=== PATIENT | female | born 1970 | race Caucasian/White ===

== ENCOUNTER 2018-03-24 17:18 | Emergency (ER) | payer SELFPAY, MEDICAID | END 2018-03-24 21:17 | disposition left against medical advice (07) | LOC: FTE 17:18 | DX: Z53.21 Procedure and treatment not carried out due to patient leaving prior to being seen by health care provider (principal) ==

== ENCOUNTER 2018-05-19 12:37 | Emergency (ER) | payer MEDICAID | END 2018-05-19 14:45 | disposition home or self-care (01) | LOC: FTE 12:37 | DX: B00.9 Herpesviral infection, unspecified (principal); I10 Essential (primary) hypertension; E11.9 Type 2 diabetes mellitus without complications | CPT/HCPCS: 99283; Z7502 ==

== ENCOUNTER 2018-11-09 05:35 | Inpatient (IN) | payer MEDICAID ==
[2018-11-09 06:24] LABS: ADD MAN DIFF? NO
[2018-11-09 06:27] LABS: BASOPHILS % 0.2 % (0.0-2.0); EOSINOPHILS # 0.1 10^3/ul (0.0-0.5); HEMATOCRIT 30.1 % (37.0-47.0); HEMOGLOBIN 9.1 g/dl (12.0-16.0); LYMPHOCYTES # 1.2 10^3/ul (0.8-2.9); LYMPHOCYTES % 21.8 % (15.0-51.0); MEAN CORPUSCULAR HEMOGLOBIN 21.6 pg (29.0-33.0); MEAN CORPUSCULAR HGB CONC 30.2 g/dl (32.0-37.0); MEAN CORPUSCULAR VOLUME 71.3 fl (82.0-101.0); MONOCYTE # 0.6 10^3/ul (0.3-0.9); MONOCYTES % 10.8 % (0.0-11.0); NEUTROPHIL # 3.6 10^3/ul (1.6-7.5); PLATELET COUNT 432 10^3/UL (140-415); RED BLOOD COUNT 4.22 10^6/ul (4.20-5.40); RED CELL DISTRIBUTION WIDTH 15.8 % (11.5-14.5)
[2018-11-09 06:27] LABS: WHITE BLOOD COUNT 5.6 10^3/ul (4.8-10.8)
[2018-11-09] MEDS: FAMOTIDINE 20 MG TAB PO (06:28)
[2018-11-09] MEDS: LIDOCAINE/MYLANTA 40 ML BTL PO (06:28)
[2018-11-09 06:56] LABS: ALANINE AMINOTRANSFERASE 25 IU/L (13-69); ALBUMIN/GLOBULIN RATIO 1.08; ALKALINE PHOSPHATASE 84 IU/L (42-121); ANION GAP 10 (5-13); ASPARTATE AMINO TRANSFERASE 27 IU/L (15-46); BILIRUBIN,INDIRECT 0.2 mg/dl (0-1.1); BILIRUBIN,TOTAL 0.2 mg/dl (0.2-1.3); BLOOD UREA NITROGEN 13 mg/dl (7-20); CALCIUM 8.8 mg/dl (8.4-10.2); CARBON DIOXIDE 25 mmol/L (21-31); CHLORIDE 104 mmol/L (97-110); CREATININE 0.59 mg/dl (0.44-1.00); Estimated GFR > 60 mL/min (>60); GLUCOSE 112 mg/dl (70-220); LIPASE 94 U/L (23-300); POTASSIUM 3.6 mmol/L (3.5-5.1); SODIUM 139 mmol/L (135-144); TOTAL PROTEIN 7.7 g/dl (6.1-8.1)
[2018-11-09 07:31] LABS: UR BILIRUBIN (Dip) NEGATIVE (NEGATIVE); UR BLOOD (Dip) 1+ mg/dL (NEGATIVE); UR CLARITY SLIGHTLY CLOUDY (CLEAR); UR COLOR YELLOW (YELLOW); UR GLUCOSE (Dip) NEGATIVE (NEGATIVE); UR KETONES (Dip) NEGATIVE (NEGATIVE); UR LEUKOCYTE ESTERASE (Dip) TRACE Leu/ul (NEGATIVE); UR NITRITE (Dip) NEGATIVE (NEGATIVE); UR SPECIFIC GRAVITY (Dip) 1.012 (1.003-1.030); UR TOTAL PROTEIN (Dip) NEGATIVE (NEGATIVE); UR UROBILINOGEN (Dip) NEGATIVE (NEGATIVE)
[2018-11-09 07:32] LABS: ADD UMIC YES; UR ASCORBIC ACID NEGATIVE (NEGATIVE); UR BACTERIA FEW /HPF (NONE SEEN); UR RBC 3 /HPF (0-5); UR SQUAMOUS EPITHELIAL CELL FEW /HPF (FEW); UR WBC 6 /HPF (0-5)
[2018-11-09] MEDS: PIPER-TAZO 3.375 GM IV (PMX) 100 ML IVPB ×3 (08:58→20:48)
[2018-11-09] MEDS: morphine 4 MG/ML VIAL IV (09:30)
[2018-11-09] MEDS: ONDANSETRON 4 MG INJ IV (09:31)
[2018-11-09] MEDS ORDERED: morphine 2 MG INJ IV (11:30)
[2018-11-09] MEDS ORDERED: NACL 0.9% 3 ML SYG IV (11:30)
[2018-11-09] MEDS ORDERED: ONDANSETRON 4 MG INJ IV ×2 (11:30→17:00)
[2018-11-09] MEDS: AL HYDROX/MG HYDROX/SIMETH 30 ML CUP PO ×2 (12:10→18:44)
[2018-11-09] MEDS: PANTOPRAZOLE 40 MG INJ IV ×2 (12:10→20:48)
[2018-11-09] MEDS: SOD CHLORIDE 0.9% 1,000 ML IV (12:11)
[2018-11-09 12:42] LABS: IRON 27 ug/dl (35-150)
[2018-11-09 12:51] LABS: % IRON SATURATION 6 % SAT (22-52); TOTAL IRON BINDING CAPACITY 479 ug/dl (241-421)
[2018-11-09 13:41] LABS: FERRITIN 5.8 ng/ml (6.2-137.0)
[2018-11-09] MEDS: LOSARTAN 50 MG TAB PO ×2 (15:09→23:22)
[2018-11-09] MEDS: SUCRALFATE (100 MG/ML) 10ML CUP PO ×2 (15:09→20:47)
[2018-11-09] MEDS: METOCLOPRAMIDE 10 MG TAB PO (15:09)
[2018-11-09] MEDS ORDERED: GLUCOSE GEL 15 GRAM TUBE BUCCAL (16:30)
[2018-11-09] MEDS ORDERED: DEXTROSE 50% 50 ML SYRINGE IV ×2 (16:30)
[2018-11-09] MEDS ORDERED: GLUCOSE GEL 15 GRAM TUBE PO ×2 (16:30)
[2018-11-09] MEDS ORDERED: GLUCAGON 1 MG INJ IM (16:30)
[2018-11-09] MEDS: PROPOFOL 20 ML (16:59)
[2018-11-09] MEDS: LIDOCAINE 2% (SDV) 5 ML INJ (16:59)
[2018-11-09] MEDS ORDERED: HYDROmorphONE 1 MG/5 ML IV SYRINGE IV (17:00)
[2018-11-09] MEDS: INSULIN ASPART [NOVOLOG] 3 ML PEN SC ×2 (17:55→21:00)
[2018-11-09] MEDS: SOD FERRIC GLUC COMPLX 125 MG in SOD CHLORIDE 0.9% 100 ML IVPB (18:47)
[2018-11-10] MEDS: AL HYDROX/MG HYDROX/SIMETH 30 ML CUP PO ×4 (00:51→17:45)
[2018-11-10] MEDS: PIPER-TAZO 3.375 GM IV (PMX) 100 ML IVPB ×4 (00:51→17:44)
[2018-11-10] MEDS: SOD CHLORIDE 0.9% 1,000 ML IV ×2 (00:53→13:00)
[2018-11-10] MEDS: ACCU-CHEK XX (02:00)
[2018-11-10 05:21] LABS: WHITE BLOOD COUNT 4.4 10^3/ul (4.8-10.8)
[2018-11-10 05:21] LABS: ADD MAN DIFF? NO; BASOPHILS % 0.5 % (0.0-2.0); EOSINOPHILS # 0.1 10^3/ul (0.0-0.5); EOSINOPHILS % 2.7 % (0.0-7.0); HEMATOCRIT 25.9 % (37.0-47.0); HEMOGLOBIN 7.7 g/dl (12.0-16.0); LYMPHOCYTES # 1.2 10^3/ul (0.8-2.9); LYMPHOCYTES % 26.4 % (15.0-51.0); MEAN CORPUSCULAR HEMOGLOBIN 21.6 pg (29.0-33.0); MEAN CORPUSCULAR HGB CONC 29.7 g/dl (32.0-37.0); MEAN CORPUSCULAR VOLUME 72.8 fl (82.0-101.0); MEAN PLATELET VOLUME 10.6 fl (7.4-10.4); MONOCYTE # 0.4 10^3/ul (0.3-0.9); MONOCYTES % 9.9 % (0.0-11.0); NEUTROPHIL # 2.7 10^3/ul (1.6-7.5); NEUTROPHILS % 60.3 % (39.0-77.0); PLATELET COUNT 365 10^3/UL (140-415); RED BLOOD COUNT 3.56 10^6/ul (4.20-5.40); RED CELL DISTRIBUTION WIDTH 15.8 % (11.5-14.5)
[2018-11-10 05:44] LABS: HEMOGLOBIN A1C 6.4 % (0-5.9)
[2018-11-10 05:52] LABS: ALANINE AMINOTRANSFERASE 71 IU/L (13-69); ALBUMIN/GLOBULIN RATIO 1.03; ALKALINE PHOSPHATASE 112 IU/L (42-121); ANION GAP 9 (5-13); ASPARTATE AMINO TRANSFERASE 69 IU/L (15-46); BILIRUBIN,INDIRECT 0.2 mg/dl (0-1.1); BILIRUBIN,TOTAL 0.2 mg/dl (0.2-1.3); BLOOD UREA NITROGEN 12 mg/dl (7-20); CALCIUM 8.5 mg/dl (8.4-10.2); CARBON DIOXIDE 26 mmol/L (21-31); CHLORIDE 105 mmol/L (97-110); CHOL/HDL RATIO 2.7 RATIO; CHOLESTEROL 108 mg/dl (100-200); CREATININE 0.65 mg/dl (0.44-1.00); Estimated GFR > 60 mL/min (>60); GLUCOSE 100 mg/dl (70-220); HDL CHOLESTEROL 39 mg/dl (34-88); LDL CHOLESTEROL,CALCULATED 50 mg/dl; PHOSPHORUS 3.3 mg/dl (2.5-4.9); POTASSIUM 3.9 mmol/L (3.5-5.1); SODIUM 140 mmol/L (135-144); TOTAL PROTEIN 5.9 g/dl (6.1-8.1); TRIGLYCERIDES 97 mg/dl (0-149)
[2018-11-10] MEDS: PANTOPRAZOLE 40 MG INJ IV ×2 (06:04→17:45)
[2018-11-10] MEDS: INSULIN ASPART [NOVOLOG] 3 ML PEN SC ×4 (07:50→20:37)
[2018-11-10] MEDS: LOSARTAN 50 MG TAB PO ×2 (08:55→20:16)
[2018-11-10] MEDS: SUCRALFATE (100 MG/ML) 10ML CUP PO ×4 (08:55→20:16)
[2018-11-10] MEDS: SOD FERRIC GLUC COMPLX 125 MG in SOD CHLORIDE 0.9% 100 ML IVPB (13:05)
[2018-11-10] MEDS: hydrALAzine 20 MG INJ IV ×2 (15:59→21:30)
[2018-11-10 18:38] LABS: OCCULT BLOOD STOOL NEGATIVE (NEGATIVE)
[2018-11-11] MEDS: PIPER-TAZO 3.375 GM IV (PMX) 100 ML IVPB ×5 (00:17→23:56)
[2018-11-11] MEDS: AL HYDROX/MG HYDROX/SIMETH 30 ML CUP PO ×4 (00:17→17:23)
[2018-11-11] MEDS: ACETAMINOPHEN 325 MG TAB PO (01:06)
[2018-11-11] MEDS: ACCU-CHEK XX (02:00)
[2018-11-11 05:17] LABS: ADD MAN DIFF? NO
[2018-11-11 05:26] LABS: BASOPHILS % 0.4 % (0.0-2.0); EOSINOPHILS # 0.2 10^3/ul (0.0-0.5); EOSINOPHILS % 2.3 % (0.0-7.0); HEMATOCRIT 26.2 % (37.0-47.0); HEMOGLOBIN 7.9 g/dl (12.0-16.0); LYMPHOCYTES # 1.9 10^3/ul (0.8-2.9); LYMPHOCYTES % 25.3 % (15.0-51.0); MEAN CORPUSCULAR HEMOGLOBIN 21.6 pg (29.0-33.0); MEAN CORPUSCULAR HGB CONC 30.2 g/dl (32.0-37.0); MEAN CORPUSCULAR VOLUME 71.8 fl (82.0-101.0); MEAN PLATELET VOLUME 10.5 fl (7.4-10.4); MONOCYTE # 0.5 10^3/ul (0.3-0.9); MONOCYTES % 7.2 % (0.0-11.0); NEUTROPHIL # 4.8 10^3/ul (1.6-7.5); NEUTROPHILS % 64.1 % (39.0-77.0); PLATELET COUNT 384 10^3/UL (140-415); RED BLOOD COUNT 3.65 10^6/ul (4.20-5.40); RED CELL DISTRIBUTION WIDTH 15.9 % (11.5-14.5)
[2018-11-11 05:26] LABS: WHITE BLOOD COUNT 7.5 10^3/ul (4.8-10.8)
[2018-11-11] MEDS: PANTOPRAZOLE 40 MG INJ IV ×2 (06:23→17:23)
[2018-11-11 07:16] LABS: ANION GAP 6 (5-13); BLOOD UREA NITROGEN 8 mg/dl (7-20); CALCIUM 8.9 mg/dl (8.4-10.2); CARBON DIOXIDE 27 mmol/L (21-31); CHLORIDE 106 mmol/L (97-110); CREATININE 0.52 mg/dl (0.44-1.00); Estimated GFR > 60 mL/min (>60); GLUCOSE 103 mg/dl (70-220); POTASSIUM 3.6 mmol/L (3.5-5.1); SODIUM 139 mmol/L (135-144)
[2018-11-11] MEDS: SUCRALFATE (100 MG/ML) 10ML CUP PO ×4 (08:32→21:16)
[2018-11-11] MEDS: LOSARTAN 50 MG TAB PO ×2 (08:34→21:16)
[2018-11-11] MEDS: INSULIN ASPART [NOVOLOG] 3 ML PEN SC ×4 (08:40→21:00)
[2018-11-11] MEDS: SOD FERRIC GLUC COMPLX 125 MG in SOD CHLORIDE 0.9% 100 ML IVPB (13:39)
[2018-11-11] MEDS: hydrALAzine 20 MG INJ IV (19:51)
[2018-11-12] MEDS: ACETAMINOPHEN 325 MG TAB PO (00:01)
[2018-11-12] MEDS: ACCU-CHEK XX (02:00)
[2018-11-12 05:16] LABS: ADD MAN DIFF? NO
[2018-11-12 05:17] LABS: BASOPHILS % 0.3 % (0.0-2.0); EOSINOPHILS # 0.2 10^3/ul (0.0-0.5); EOSINOPHILS % 1.9 % (0.0-7.0); HEMATOCRIT 26.7 % (37.0-47.0); HEMOGLOBIN 8.2 g/dl (12.0-16.0); LYMPHOCYTES # 2.2 10^3/ul (0.8-2.9); LYMPHOCYTES % 24.8 % (15.0-51.0); MEAN CORPUSCULAR HGB CONC 30.7 g/dl (32.0-37.0); MEAN CORPUSCULAR VOLUME 71.6 fl (82.0-101.0); MEAN PLATELET VOLUME 9.8 fl (7.4-10.4); MONOCYTE # 0.5 10^3/ul (0.3-0.9); MONOCYTES % 5.7 % (0.0-11.0); NEUTROPHILS % 66.7 % (39.0-77.0); PLATELET COUNT 395 10^3/UL (140-415); RED BLOOD COUNT 3.73 10^6/ul (4.20-5.40); RED CELL DISTRIBUTION WIDTH 16.2 % (11.5-14.5)
[2018-11-12] MEDS: PIPER-TAZO 3.375 GM IV (PMX) 100 ML IVPB ×2 (05:59→12:19)
[2018-11-12] MEDS: AL HYDROX/MG HYDROX/SIMETH 30 ML CUP PO ×3 (06:00→12:19)
[2018-11-12] MEDS: PANTOPRAZOLE 40 MG INJ IV (06:00)
[2018-11-12] MEDS: INSULIN ASPART [NOVOLOG] 3 ML PEN SC ×2 (07:50→11:40)
[2018-11-12] MEDS: SUCRALFATE (100 MG/ML) 10ML CUP PO ×2 (08:50→12:19)
[2018-11-12] MEDS: LOSARTAN 50 MG TAB PO (08:51)
[2018-11-12] MEDS: SOD FERRIC GLUC COMPLX 125 MG in SOD CHLORIDE 0.9% 100 ML IVPB (13:04)
== END 2018-11-12 14:48 | disposition home or self-care (01) | DRG 392 ==
LOC: E/R 05:35 → MS1 08:47
PROC: 0DB98ZX Excision of Duodenum, Via Natural or Artificial Opening Endoscopic, Diagnostic (ICD-10-PCS; principal; 2018-11-09 16:00)
PROC: 0DB68ZX Excision of Stomach, Via Natural or Artificial Opening Endoscopic, Diagnostic (ICD-10-PCS; 2018-11-09 16:00)
DX: K29.00 Acute gastritis without bleeding (principal); K29.80 Duodenitis without bleeding; K20.9 Esophagitis, unspecified; K37 Unspecified appendicitis; K44.9 Diaphragmatic hernia without obstruction or gangrene; K42.9 Umbilical hernia without obstruction or gangrene; D50.9 Iron deficiency anemia, unspecified; D47.3 Essential (hemorrhagic) thrombocythemia; E11.9 Type 2 diabetes mellitus without complications; E66.9 Obesity, unspecified; I10 Essential (primary) hypertension; N92.0 Excessive and frequent menstruation with regular cycle; R82.71 Bacteriuria; R19.7 Diarrhea, unspecified; Z68.33 Body mass index [BMI] 33.0-33.9, adult; Z90.49 Acquired absence of other specified parts of digestive tract; Z79.84 Long term (current) use of oral hypoglycemic drugs
CPT/HCPCS: 36415; 74176; 80048; 80053; 80061; 81001; 81025; 82270; 82728; 82962; 83036; 83540; 83690; 83735; 84100; 85025; 85651; 87045; 87075; 87086; 87177; 88305; 88312; 93005; 99285-25

== ENCOUNTER 2019-03-20 14:10 | Emergency (ER) | payer MEDICAID | END 2019-03-20 15:23 | disposition home or self-care (01) | LOC: FTE 14:10 | DX: M72.2 Plantar fascial fibromatosis (principal); I10 Essential (primary) hypertension; Z79.84 Long term (current) use of oral hypoglycemic drugs | CPT/HCPCS: 73630; 73630-LT; 99283-25 ==